=== PATIENT | female | born 1985 | race Caucasian/White ===

== ENCOUNTER → 2017-10-19 | Outpatient (CLI) | payer MEDICARE, OTHER ==
[2017-10-19 15:37] VITALS: BP 146/77; PULSE 78; RESP 16; TEMP 98.5; BMI 37.3
--- NOTE | 2017-10-19 15:45 | P.HPBAR ---
Bariatric H&P - History & Physicial H&P Date: 10/19/17 History & Physicial: Visit/CC: Initial Visit Patient initial contact: Initial weight: 109.769 kg Initial weight in pounds: 242.00 Height: 5 ft 7.5 in Initial BMI: 37.3 Last weight: Current weight: 109.769 kg Current weight in pounds: 242.00 Current BMI: 37.3 [place] body weight (based on NIH guidelines): 62.369 kg Excess body weight loss: 0.0% The patient is a 32 year-old F who presents for Bariatric Assessment. Patient presents today for initial consultation for sleeve gastrectomy. She's had lifetime problems obesity. She was referred year by her family doctor. Past Medical History Past Medical History: Diabetes Mellitus, Hyperlipidemia History of Any Multi-Drug Resistant Organisms: None Reported Past Surgical History: Section, Cholecystectomy Additional Past Surgical History / Comment(s): c section x 4 d & c Past Anesthesia/Blood Transfusion Reactions: No Reported Reaction Smoking Status: Current every day smoker Surgical - Exam Vital Signs Temp Pulse Resp BP 98.5 F 78 16 146/77 10/19/17 15:34 10/19/17 15:34 10/19/17 15:34 10/19/17 15:34 - General BMI 37 well developed, well nourished - Eyes PERRL - ENT normal pinna - Neck no masses - Respiratory normal expansion - Cardiovascular Rhythm: regular - Abdomen Abdomen: soft, non tender Bariatric Assessment & Plan Plan: Had a lengthy discussion the patient regarding sleeve yesterday. A 1 over the risks and benefits of procedure including conversion O procedure and injury to the stomach liver spleen vagotomy dysphagia and issues of gastric staple line such as bleeding, perforation obstruction. The patient's morbid obesity BMI 37. She'll be scheduled for EGD. Bariatric Checklist Checklist: Plan: Checklist: EGD: 1. Hiatal hernia: 2. H. Pylori: HgbA1c: Vitamin D: Smoking: Current every day smoker Primary care physician referral: Psychiatry clearance: Cardiology clearance: Sleep study: Diet journal: VTE risk score: VTE risk level: Rehab needs at discharge:
[2017-10-19 16:38] LABS: HCT 41.9 % (34.0-46.0); MCH 27.6 pg (25.0-35.0); MCHC 31.1 g/dL (31.0-37.0); MCV 88.9 fL (80.0-100.0); Mean Platelet Volume 8.1; Platelet Count 206 k/uL (150-450); RBC 4.71 m/uL (3.80-5.40); RDW 14.2 % (11.5-15.5); WBC 8.9 k/uL (3.8-10.6)
[2017-10-19 17:15] LABS: ALT 30 U/L (9-52); AST 18 U/L (14-36); Albumin 3.8 g/dL (3.5-5.0); Alkaline Phosphatase 77 U/L (38-126); Anion Gap 5 mmol/L; Blood Urea Nitrogen 6 mg/dL (7-17); Carbon Dioxide 23 mmol/L (22-30); Chloride 111 mmol/L (98-107); Glucose 88 mg/dL (74-99); Sodium 139 mmol/L (137-145); Total Bilirubin 0.2 mg/dL (0.2-1.3); Total Protein 6.3 g/dL (6.3-8.2)
[2017-10-20 02:59] LABS: Vitamin D 25 Hydroxy 19.9 ng/mL (30.0-100.0)
[2017-10-20 03:23] LABS: Iron Saturation 7.76 (12.00-45.00)
[2017-10-20 04:12] LABS: Hemoglobin A1C 5.2 % (4.0-6.0)
== END | disposition home or self-care (01) ==
LOC: BARWHC3 15:15
PROVIDERS: ATTEND Surgery
DX: E66.01 Morbid (severe) obesity due to excess calories (principal); D50.8 Other iron deficiency anemias; E44.0 Moderate protein-calorie malnutrition; E55.9 Vitamin D deficiency, unspecified; F17.200 Nicotine dependence, unspecified, uncomplicated; Z68.37 Body mass index [BMI] 37.0-37.9, adult
CPT/HCPCS: 80053; 82607; 83540; 83550; 84443; 85027; 82306; 83036; 93005; 36415; G0463; 99201